=== PATIENT | male | born 1945 | race Caucasian/White ===

== ENCOUNTER → 2017-01-01 | Outpatient (CLI) | payer MEDICARE | LOC: KOH-I 13:37 | DX: I65.23 Occlusion and stenosis of bilateral carotid arteries (principal) | CPT/HCPCS: 93880 ==

== ENCOUNTER 2021-08-05 02:12 | Inpatient (IN) | payer MEDICARE, OTHER ==
[~2021-08-05] VITALS: Ht 167.6 cm; Wt 74.8 kg
[2021-08-05] MEDS ORDERED: LEVOTHYROXINE25 MCG PO (04:50)
[2021-08-05 08:36] LABS: HEMOGLOBIN 13.5 gm/dl (14.0-17.5); RED BLOOD COUNT 4.17 M/UL (4.20-5.50); WHITE BLOOD COUNT 8.9 K/UL (4.5-11.0)
[2021-08-05 09:32] LABS: BUN/CREATININE RATIO 13 (0-10)
[2021-08-07 03:18] LABS: HEMOGLOBIN 12.4 gm/dl (14.0-17.5); RED BLOOD COUNT 3.81 M/UL (4.20-5.50); WHITE BLOOD COUNT 8.5 K/UL (4.5-11.0)
[2021-08-07 03:42] LABS: BUN/CREATININE RATIO 14 (0-10)
[2021-08-08] MEDS ORDERED: ATORVASTATIN CA40 MG PO (12:51)
[2021-08-08] MEDS ORDERED: ASPIRIN EC81 MG PO (12:51)
[2021-08-08] MEDS ORDERED: PROTONIX 40 MG40 M1 PO (12:51)
[2021-08-08] MEDS ORDERED: BRILINTA 90 MG90 MG PO (12:51)
[2021-08-08] MEDS ORDERED: NICOTINE PATCH1 EAC2 TD (12:51)
[2021-08-08] MEDS ORDERED: NITROGLYCERIN0.4 MG SL (12:51)
== END 2021-08-08 15:52 | disposition home or self-care (01) | DRG 247 ==
LOC: CCU 02:43 → PROG CARE 02:43 → CDU 02:43 → CCU 04:28 → PROG CARE 08-06 16:36
PROVIDERS: Nurse Practitioner; ADMIT Internal Medicine Interventional Cardiology
PROC: 4A023N7 Measurement of Cardiac Sampling and Pressure, Left Heart, Percutaneous Approach (ICD-10-PCS; principal; 2021-08-05)
PROC: 027034Z Dilation of Coronary Artery, One Artery with Drug-eluting Intraluminal Device, Percutaneous Approach (ICD-10-PCS; 2021-08-05)
PROC: B2111ZZ Fluoroscopy of Multiple Coronary Arteries using Low Osmolar Contrast (ICD-10-PCS; 2021-08-05)
DX: I21.19 ST elevation (STEMI) myocardial infarction involving other coronary artery of inferior wall (principal); I95.9 Hypotension, unspecified; I25.10 Atherosclerotic heart disease of native coronary artery without angina pectoris; F17.210 Nicotine dependence, cigarettes, uncomplicated; Z96.651 Presence of right artificial knee joint; Z98.890 Other specified postprocedural states; Z79.899 Other long term (current) drug therapy; Z79.82 Long term (current) use of aspirin
CPT/HCPCS: ECHO; 36415; 71045; 80048; 80053; 80061; 82550; 82553; 83880; 84484; 85025; 85027; 93005; 93306; C1725; C1769; C1874; C1887; J0461; J0583; J1265; J1650; J2270; J2370; J7030; J7040

== ENCOUNTER → 2021-09-14 | Outpatient (CLI) | payer MEDICARE ==
[~2021-09-14] MED LIST: ASPIRIN EC81 MG PO; ATORVASTATIN CA40 MG PO; BRILINTA 90 MG90 MG PO; LEVOTHYROXINE25 MCG PO; NICOTINE PATCH1 EAC2 TD; NITROGLYCERIN0.4 MG SL; PROTONIX 40 MG40 M1 PO
[2021-09-14 13:01] LABS: BUN/CREATININE RATIO 16 (0-10)
== END ==
LOC: RAD 12:10
PROVIDERS: Internal Medicine Interventional Cardiology
DX: I50.9 Heart failure, unspecified (principal)
CPT/HCPCS: 36415; 71045; 80048; 83880

== ENCOUNTER → 2021-11-06 | Outpatient (CLI) | payer MEDICARE | LOC: HEART 5 15:03 | DX: I50.9 Heart failure, unspecified (principal); I08.1 Rheumatic disorders of both mitral and tricuspid valves | CPT/HCPCS: 93306 ==

== ENCOUNTER → 2022-03-27 | Outpatient (CLI) | payer MEDICARE | LOC: HEART 5 10:33 | DX: J44.9 Chronic obstructive pulmonary disease, unspecified (principal) | CPT/HCPCS: 94060; 94729 ==